=== PATIENT | female | born 1975 | race African-American/Black ===

== ENCOUNTER 2023-12-30 11:56 | Observation (INO) ==
[2023-12-30] MEDS: PERCOCET TAB 5/325 MG PO PRN (14:00)
[2023-12-30] MEDS: NS 1,000 ML IV 1,000 ML IV SCH (14:00)
[2023-12-30 14:08] LABS: BASOPHILS # (AUTO) 0.1 X10^3/uL (0.0-0.1); BASOPHILS % (AUTO) 1.2 % (0.2-1.0); EOSINOPHILS # (AUTO) 0.1 x10^3/uL (0.0-0.2); EOSINOPHILS % (AUTO) 1.4 % (0.9-2.9); HEMOGLOBIN 9.4 g/dL (12.0-16.0); LYMPHOCYTES # (AUTO) 1.6 X10^3/uL (1.3-2.9); LYMPHOCYTES % (AUTO) 22.5 % (21.0-51.0); MEAN CORPUSCULAR HEMOGLOBIN 29.3 pg (27.0-34.0); MEAN CORPUSCULAR HGB CONC 33.5 g/dL (33.0-35.0); MEAN CORPUSCULAR VOLUME 87.2 fL (80.0-100.0); MEAN PLATELET VOLUME 6.9 fL (7.4-11.0); MONOCYTES # (AUTO) 0.5 x10^3/uL (0.3-0.8); MONOCYTES % (AUTO) 7.4 % (0.0-13.0); NEUTROPHILS % (AUTO) 67.5 % (42.0-75.0); PLATELET COUNT 230 X10^3/uL (150.0-450.0); RED BLOOD COUNT 3.21 X10^6/uL (3.5-5.4); RED CELL DISTRIBUTION WIDTH 17.2 % (11.6-16.5); WHITE BLOOD COUNT 7.3 X10^3/uL (3.6-10.0)
[2023-12-30 14:21] LABS: ALANINE AMINOTRANSFERASE 7 Units/L (12-78); ALBUMIN 3.2 g/dL (3.4-5.0); ALKALINE PHOSPHATASE 99 Units/L (46-116); ASPARTATE AMINO TRANSFERASE 7 Units/L (15-37); BLOOD UREA NITROGEN 60 mg/dL (7-18); CALCIUM 9.1 mg/dL (8.5-10.1); CARBON DIOXIDE 27.7 mmol/L (21-32); CHLORIDE 101 mmol/L (98-107); COR CA(FOR HYPOALB) 9.7 mg/dL (8.5-10.1); CREATININE 9.53 mg/dL (0.55-1.02); GLUCOSE 83 mg/dL (65-99); POTASSIUM 5.2 mmol/L (3.5-5.1); SODIUM 140 mmol/L (136-145); TOTAL PROTEIN 7.5 g/dL (6.4-8.2); eGFR NON BLACK RACES 5 (>60)
[2023-12-30] MEDS: NS 250 ML IV 250 ML IV ONE (16:48)
[2023-12-30] MEDS: ZOSYN VIAL 2.25 GRAMS 2.25 G in NS 100 ML IV 100 ML IV SCH (16:49)
[2023-12-31] MEDS: HIBICLENS WASH EXT ONE (05:00)
[2023-12-31 05:48] LABS: BASOPHILS # (AUTO) 0.1 X10^3/uL (0.0-0.1); BASOPHILS % (AUTO) 0.7 % (0.2-1.0); EOSINOPHILS # (AUTO) 0.1 x10^3/uL (0.0-0.2); EOSINOPHILS % (AUTO) 1.1 % (0.9-2.9); HEMOGLOBIN 9.5 g/dL (12.0-16.0); LYMPHOCYTES # (AUTO) 1.3 X10^3/uL (1.3-2.9); LYMPHOCYTES % (AUTO) 15.4 % (21.0-51.0); MEAN CORPUSCULAR HEMOGLOBIN 29.6 pg (27.0-34.0); MEAN CORPUSCULAR HGB CONC 33.8 g/dL (33.0-35.0); MEAN CORPUSCULAR VOLUME 87.4 fL (80.0-100.0); MEAN PLATELET VOLUME 7.2 fL (7.4-11.0); MONOCYTES # (AUTO) 0.5 x10^3/uL (0.3-0.8); MONOCYTES % (AUTO) 6.4 % (0.0-13.0); NEUTROPHILS # (AUTO) 6.5 x10^3/uL (2.2-4.8); NEUTROPHILS % (AUTO) 76.4 % (42.0-75.0); PLATELET COUNT 240 X10^3/uL (150.0-450.0); RED CELL DISTRIBUTION WIDTH 17.4 % (11.6-16.5); WHITE BLOOD COUNT 8.5 X10^3/uL (3.6-10.0)
--- NOTE | 2023-12-31 16:01 | NOTE.SOAP ---
Soap Note Note for Day of Date of Exam: 12/30/23 Subjective Data Subjective Data: See office note . Admitted for iV antibiotics and possible drainage of infected left arm over upper arm AV graft. Objective Data Temperature: 99 F Pulse Rate: 92 Respiratory Rate: 18 Blood Pressure: 139/73 O2 Sat by Pulse Oximetry: 98 Objective Data: Red swollen ledt upper arm with posible purulence Assessment Assessment: infected AV dialysis graft left upper arm Plan Plan: IV antibiotics and re-evaluate. May need incision and drainage around dialysis graft
[2024-01-01 05:02] LABS: BASOPHILS # (AUTO) 0.1 X10^3/uL (0.0-0.1); EOSINOPHILS # (AUTO) 0.1 x10^3/uL (0.0-0.2); EOSINOPHILS % (AUTO) 1.9 % (0.9-2.9); HEMATOCRIT 27.9 % (36.0-47.0); HEMOGLOBIN 9.3 g/dL (12.0-16.0); LYMPHOCYTES # (AUTO) 1.6 X10^3/uL (1.3-2.9); LYMPHOCYTES % (AUTO) 23.2 % (21.0-51.0); MEAN CORPUSCULAR HGB CONC 33.2 g/dL (33.0-35.0); MEAN CORPUSCULAR VOLUME 87.3 fL (80.0-100.0); MEAN PLATELET VOLUME 7.1 fL (7.4-11.0); MONOCYTES # (AUTO) 0.5 x10^3/uL (0.3-0.8); MONOCYTES % (AUTO) 7.5 % (0.0-13.0); NEUTROPHILS # (AUTO) 4.7 x10^3/uL (2.2-4.8); NEUTROPHILS % (AUTO) 66.4 % (42.0-75.0); PLATELET COUNT 247 X10^3/uL (150.0-450.0); RED CELL DISTRIBUTION WIDTH 17.1 % (11.6-16.5); WHITE BLOOD COUNT 7.1 X10^3/uL (3.6-10.0)
[2024-01-01 05:07] LABS: BLOOD UREA NITROGEN 74 mg/dL (7-18); CALCIUM 8.7 mg/dL (8.5-10.1); CHLORIDE 100 mmol/L (98-107); CREATININE 11.95 mg/dL (0.55-1.02); GLUCOSE 85 mg/dL (65-99); POTASSIUM 4.8 mmol/L (3.5-5.1); SODIUM 140 mmol/L (136-145); eGFR NON BLACK RACES 4 (>60)
[2024-01-01 05:31] VITALS: O2SAT 100
[2024-01-01 07:00] VITALS: BMI 35.0
[2024-01-01] MEDS: NS 500 ML IV 500 ML IV ONE (14:58)
[2024-01-01] MEDS: MARCAINE 0.5% ONE (15:00)
[2024-01-01] MEDS: NS 100 ML IV 100 ML ONE (15:01)
[2024-01-01] MEDS: ANCEF VIAL 1 GRAM ONE (15:01)
[2024-01-01] MEDS: BETADINE SOLN ONE (15:10)
--- NOTE | 2024-01-01 15:11 | DR.H&P ---
H&P History & Physical for Day of: H&P Date: 12/31/23 Chief Complaint Chief Complaint: Swollen left upper arm with redness History of Present Illness History of Present Illness: 48 year old female with end-stage renal disease currently dialyzed via a left internal jugular dual lumen catheter. The patient has had revision of this graft in left upper arm and it has been used twice now with significant swelling around it and questionable whether or not the graft is working or not. There is redness and swelling over the left lateral arm over the graft itself. Past Medical History Past Medical History: GERD, Hypertension and Renal Disease Past Surgical History Surgical History: Cholecystectomy and Hysterectomy Family History Family Medical History: Diabetes Mellitus, ME and Hypertension Social History Does patient currently use any type of tobacco product: No Type of Tobacco Use: Cigarettes How many years tobacco product used: 28 Alcohol Use: None Drug Use: None Medications Home Medications: Home Medications Medication Instructions Recorded Confirmed Type famotidine 40 mg tablet 40 mg PO QDAY 12/30/23 12/30/23 History Allergies Allergies Allergy/AdvReac Type Severity Reaction Status Date / Time No Known Allergies Allergy Verified 12/30/23 13:12 Labs 01/01/24 04:36 01/01/24 04:36 Labs: Laboratory WBC 8.5 X10^3/uL (3.6-10.0) 12/31/23 04:41 RBC 3.20 X10^6/uL (3.5-5.4) L 12/31/23 04:41 Hgb 9.5 g/dL (12.0-16.0) L 12/31/23 04:41 Hct 28.0 % (36.0-47.0) L 12/31/23 04:41 MCV 87.4 fL (80.0-100.0) 12/31/23 04:41 MCH 29.6 pg (27.0-34.0) 12/31/23 04:41 MCHC 33.8 g/dL (33.0-35.0) 12/31/23 04:41 RDW 17.4 % (11.6-16.5) H 12/31/23 04:41 Plt Count 240 X10^3/uL (150.0-450.0) 12/31/23 04:41 MPV 7.2 fL (7.4-11.0) L 12/31/23 04:41 Neut % (Auto) 76.4 % (42.0-75.0) H 12/31/23 04:41 Lymph % (Auto) 15.4 % (21.0-51.0) L 12/31/23 04:41 [place] % (Auto) 6.4 % (0.0-13.0) 12/31/23 04:41 Eos % (Auto) 1.1 % (0.9-2.9) 12/31/23 04:41 Baso % (Auto) 0.7 % (0.2-1.0) 12/31/23 04:41 Neut # (Auto) 6.5 x10^3/uL (2.2-4.8) H 12/31/23 04:41 Lymph # (Auto) 1.3 X10^3/uL (1.3-2.9) 12/31/23 04:41 [place] # (Auto) 0.5 x10^3/uL (0.3-0.8) 12/31/23 04:41 Eos # (Auto) 0.1 x10^3/uL (0.0-0.2) 12/31/23 04:41 Baso # (Auto) 0.1 X10^3/uL (0.0-0.1) 12/31/23 04:41 Absolute Nucleated RBC 0.1 /100WBC 12/31/23 04:41 Sodium 140 mmol/L (136-145) 12/30/23 13:56 Corrected Sodium TNP 12/30/23 13:56 Potassium 5.2 mmol/L (3.5-5.1) H 12/31/23 04:41 Chloride 101 mmol/L (98-107) 12/30/23 13:56 Carbon Dioxide 27.7 mmol/L (21-32) 12/30/23 13:56 BUN 60 mg/dL (7-18) H 12/30/23 13:56 Creatinine 9.53 mg/dL (0.55-1.02) H 12/30/23 13:56 Est GFR (MDRD) Af Amer 6 (>60) L 12/30/23 13:56 Est GFR (MDRD) Non-Af 5 (>60) L 12/30/23 13:56 Glucose 83 mg/dL (65-99) 12/30/23 13:56 POC Glucose (mg/dL) 88 mg/dL (65-99) 12/31/23 11:26 Calcium 9.1 mg/dL (8.5-10.1) 12/30/23 13:56 Corrected Calcium 9.7 mg/dL (8.5-10.1) 12/30/23 13:56 Total Bilirubin 0.20 mg/dL (0.2-1.0) 12/30/23 13:56 AST 7 Units/L (15-37) L 12/30/23 13:56 ALT 7 Units/L (12-78) L 12/30/23 13:56 Alkaline Phosphatase 99 Units/L (46-116) 12/30/23 13:56 Total Protein 7.5 g/dL (6.4-8.2) 12/30/23 13:56 Albumin 3.2 g/dL (3.4-5.0) L 12/30/23 13:56 Globulin 4.3 g/dL (2.5-4.5) 12/30/23 13:56 Albumin/Globulin Ratio 0.7 Ratio (1.1-2.1) L 12/30/23 13:56 Review of Systems Constitutional: See HPI Eyes: No Symptoms Reported ENT: No Symptoms Reported Respiratory: No Symptoms Reported Cardiovascular: No Symptoms Reported Gastrointestinal: No Symptoms Reported Genitourinary: No Symptoms Reported Musculoskeletal: No Symptoms Reported Skin: No Symptoms Reported Neurological: No Symptoms Reported Physical Exam Vital Signs: Vital Signs Temperature 99 F Temperature 98.7 F Pulse Rate 92 Pulse Rate 81 Pulse Rate 77 Pulse Rate 77 Pulse Rate 84 Pulse Rate 83 Respiratory Rate 18 Respiratory Rate 18 Respiratory Rate 18 Blood Pressure 139/73 Blood Pressure 170/88 Blood Pressure 178/89 O2 Sat by Pulse Oximetry 98 O2 Sat by Pulse Oximetry 100 O2 Sat by Pulse Oximetry 98 O2 Sat by Pulse Oximetry 95 O2 Sat by Pulse Oximetry 95 O2 Sat by Pulse Oximetry 100 Oriented: Normal, Time, Person and Place Eyes: Normal Ear: Normal Nose: Normal Throat: Normal Respiratory: Clear Throughout Cardiovascular: Normal : Normal Auscultation: Bowel Sounds: Normal Palpation: Normal Tenderness: Normal Skin: Other (redness , swelling and blistering of the left upper arm over the dialysis catheter) Musculoskeletal: Normal Psychiatric: Normal Mood Description: Anxious Affect: Normal Speech Pattern: Clear and Appropriate Assessment/Plan (1) End stage renal disease: Status: Acute Plan: last dialyzed 12/29/2023 , will monitor fluid status and elctrolytes (2) Gastro-esophageal reflux disease without esophagitis: Status: Acute Plan: po famotidine (3) Infection and inflammatory reaction due to other cardiac and vascular devices, implants and grafts, initial encounter: Status: Acute Plan: iv anntibiotois Review H&P Reviewed: Yes Patient was examined?: Yes
--- NOTE | 2024-01-01 15:46 | OR.IMMED ---
IMMEDIATE POST-OP NOTE Immediate Post-Op Note Date of surgery/procedure: 01/01/24 Pre-Op Diagnosis: abscess/ hematoma over left upper arm AV graft Post-Op Diagnosis: same Procedure: incise and drain abscess over the left upper arm AV graft Description of Procedure: dictated Surgeon/Production Troubleshooter: Aidee Findings: as above ,abscess over the graft in the left upper arm and hematoma over the medial left uuper arm near venous anastomosis Specimens Removed: cultures of abscess Estimated Blood Loss: < 25 cc Complications: none Progress Notes: to floor , restart diet , coninue IV antibiotics, Will arrange for dialysis tomorrow
[2024-01-01] MEDS ORDERED: ZOFRAN INJ 4 MG VIAL ONE (16:02)
[2024-01-01] MEDS: ZOFRAN INJ 4 MG VIAL IVP PRN (16:18)
[2024-01-01] MEDS: CATAPRES TAB 0.1 MG PO ONE (17:27)
[2024-01-02] MEDS: MILK OF MAGNESIA PO PRN (05:19)
[2024-01-02] MEDS ORDERED: ZOFRAN INJ 4 MG VIAL ONE (07:07)
[2024-01-02] MEDS: ZOFRAN INJ 4 MG VIAL IVP PRN (07:27)
[2024-01-02 07:28] VITALS: RESP 20
[2024-01-02 09:11] VITALS: BP 181/85; PULSE 76; TEMP 98
--- NOTE | 2024-01-02 10:31 | W.DIS.FURT ---
Summary of Discharge Discharge Summary of Date Date of Exam: 01/02/24 Admission Date Date of Admission: 12/30/23 Admission Diagnosis Hospital Course: This is a 48 year old female with end-stage renal disease who has had revision of a left upper arm arterio-venous dialysis graft . It has been unable to be used and she presented with significant infection of that arm. She was admitted and placed on IV antibiotics.She underwent incision and drainage of this wound on December and the loom packed . She will be discharged with the dressing intact to the left arm. She will go to go dialysis tomorrow. Her creatinine and potassium have been reasonable despite not being dialed on Satuday 12/31/2023 , as her as her volume status. Cultures are pending but she will be discharged on Clindamycin 150 milligrams TID and will plan to also give her a prescription for Percocet 5 milligram tablets ,1 every 6 hours PRN pain. She has appointment to see me on TuesdayJanuary 03 to assess the wound. Vital Signs: Vital Signs (72 hours) 12/31/23 16:01 12/30/23 13:00 12/30/23 14:00 Temperature 99 F Pulse Rate 92 H Respiratory Rate 18 20 Blood Pressure 139/73 O2 Sat by Pulse Oximetry 98 Oxygen Delivery Method Room Air Oxygen Flow Rate FIO2% 12/30/23 16:08 12/30/23 13:01 12/30/23 13:06 Temperature Pulse Rate Respiratory Rate Blood Pressure 151/81 O2 Sat by Pulse Oximetry 81 L Oxygen Delivery Method Nasal Cannula Oxygen Flow Rate 2 FIO2% 28 12/30/23 13:06 12/30/23 14:00 12/30/23 15:00 Temperature Pulse Rate 84 86 88 Respiratory Rate Blood Pressure O2 Sat by Pulse Oximetry 100 99 98 Oxygen Delivery Method Oxygen Flow Rate FIO2% 12/30/23 15:55 12/30/23 15:55 12/30/23 16:00 Temperature 98.1 F Pulse Rate 80 78 Respiratory Rate Blood Pressure 141/71 O2 Sat by Pulse Oximetry 97 99 Oxygen Delivery Method Oxygen Flow Rate FIO2% 12/30/23 16:00 12/30/23 15:00 12/30/23 17:00 Temperature 99.0 F Pulse Rate 81 Respiratory Rate 20 Blood Pressure 135/68 O2 Sat by Pulse Oximetry 100 Oxygen Delivery Method Oxygen Flow Rate FIO2% 12/30/23 20:11 12/30/23 19:00 12/30/23 18:00 Temperature Pulse Rate 80 Respiratory Rate 20 Blood Pressure O2 Sat by Pulse Oximetry 97 Oxygen Delivery Method Room Air Oxygen Flow Rate FIO2% 12/30/23 19:00 12/30/23 20:00 12/30/23 20:07 Temperature Pulse Rate 87 95 H 92 H Respiratory Rate Blood Pressure O2 Sat by Pulse Oximetry 99 100 98 Oxygen Delivery Method Oxygen Flow Rate FIO2% 12/30/23 20:07 12/30/23 21:11 12/30/23 20:00 Temperature 99 F Pulse Rate Respiratory Rate 20 Blood Pressure 139/78 O2 Sat by Pulse Oximetry Oxygen Delivery Method Nasal Cannula Oxygen Flow Rate 2 FIO2% 12/30/23 21:00 12/30/23 22:00 12/30/23 23:00 Temperature Pulse Rate 90 86 87 Respiratory Rate Blood Pressure O2 Sat by Pulse Oximetry 99 100 100 Oxygen Delivery Method Oxygen Flow Rate FIO2% 12/31/23 00:00 12/31/23 00:11 12/31/23 00:11 Temperature 98.8 F Pulse Rate 81 81 Respiratory Rate Blood Pressure 154/74 O2 Sat by Pulse Oximetry 100 99 Oxygen Delivery Method Oxygen Flow Rate FIO2% 12/31/23 05:30 12/31/23 01:00 12/31/23 02:00 Temperature Pulse Rate 103 H 83 Respiratory Rate 20 Blood Pressure O2 Sat by Pulse Oximetry 99 100 Oxygen Delivery Method Oxygen Flow Rate FIO2% 12/31/23 03:01 12/31/23 04:00 12/31/23 04:00 Temperature 98.9 F Pulse Rate 75 93 H Respiratory Rate Blood Pressure 161/76 O2 Sat by Pulse Oximetry 100 95 Oxygen Delivery Method Oxygen Flow Rate FIO2% 12/31/23 05:32 12/31/23 06:30 12/31/23 07:00 Temperature Pulse Rate 87 Respiratory Rate 20 Blood Pressure O2 Sat by Pulse Oximetry 93 L Oxygen Delivery Method Room Air Oxygen Flow Rate FIO2% 12/31/23 06:00 12/31/23 07:00 12/31/23 08:00 Temperature 98.1 F Pulse Rate 81 77 84 Respiratory Rate Blood Pressure O2 Sat by Pulse Oximetry 100 100 98 Oxygen Delivery Method Oxygen Flow Rate FIO2% 12/31/23 08:00 12/31/23 08:00 12/31/23 08:00 Temperature Pulse Rate Respiratory Rate Blood Pressure 150/75 150/75 150/75 O2 Sat by Pulse Oximetry Oxygen Delivery Method Oxygen Flow Rate FIO2% 12/31/23 09:00 12/31/23 10:01 12/31/23 11:00 Temperature Pulse Rate 83 84 77 Respiratory Rate Blood Pressure O2 Sat by Pulse Oximetry 100 95 95 Oxygen Delivery Method Oxygen Flow Rate FIO2% 12/31/23 12:43 12/31/23 12:43 12/31/23 12:44 Temperature 98.7 F Pulse Rate 77 81 Respiratory Rate Blood Pressure 178/89 O2 Sat by Pulse Oximetry 98 100 Oxygen Delivery Method Oxygen Flow Rate FIO2% 12/31/23 12:44 12/31/23 12:49 12/31/23 13:49 Temperature Pulse Rate Respiratory Rate 18 18 Blood Pressure 170/88 O2 Sat by Pulse Oximetry Oxygen Delivery Method Oxygen Flow Rate FIO2% 12/31/23 12:44 12/31/23 12:44 12/31/23 16:14 Temperature 98.1 F Pulse Rate 81 83 Respiratory Rate Blood Pressure 170/88 O2 Sat by Pulse Oximetry 100 99 Oxygen Delivery Method Oxygen Flow Rate FIO2% 12/31/23 16:15 12/31/23 16:15 12/31/23 16:15 Temperature Pulse Rate Respiratory Rate Blood Pressure 177/79 177/79 177/79 O2 Sat by Pulse Oximetry Oxygen Delivery Method Oxygen Flow Rate FIO2% 12/31/23 16:15 12/31/23 19:00 12/31/23 20:33 Temperature Pulse Rate 81 80 Respiratory Rate Blood Pressure O2 Sat by Pulse Oximetry 98 99 Oxygen Delivery Method Room Air Oxygen Flow Rate FIO2% 12/31/23 20:34 12/31/23 20:34 12/31/23 20:59 Temperature 99.3 F Pulse Rate 80 Respiratory Rate Blood Pressure 156/75 O2 Sat by Pulse Oximetry 97 Oxygen Delivery Method Nasal Cannula Oxygen Flow Rate 2 FIO2% 28 12/31/23 21:00 12/31/23 22:00 12/31/23 23:00 Temperature Pulse Rate 79 69 68 Respiratory Rate Blood Pressure O2 Sat by Pulse Oximetry 98 95 98 Oxygen Delivery Method Oxygen Flow Rate FIO2% 01/01/24 00:00 01/01/24 00:22 01/01/24 00:22 Temperature 98 F Pulse Rate 75 77 Respiratory Rate Blood Pressure 151/78 O2 Sat by Pulse Oximetry 96 94 L Oxygen Delivery Method Oxygen Flow Rate FIO2% 01/01/24 01:16 01/01/24 02:16 01/01/24 01:00 Temperature Pulse Rate 77 Respiratory Rate 18 20 Blood Pressure O2 Sat by Pulse Oximetry 98 Oxygen Delivery Method Oxygen Flow Rate FIO2% 01/01/24 02:00 01/01/24 03:00 01/01/24 04:00 Temperature 97.8 F Pulse Rate 75 80 80 Respiratory Rate Blood Pressure O2 Sat by Pulse Oximetry 100 100 100 Oxygen Delivery Method Oxygen Flow Rate FIO2% 01/01/24 05:00 01/01/24 05:20 01/01/24 05:20 Temperature Pulse Rate 78 76 Respiratory Rate Blood Pressure 160/75 O2 Sat by Pulse Oximetry 100 100 Oxygen Delivery Method Oxygen Flow Rate FIO2% 01/01/24 07:00 01/01/24 06:00 01/01/24 07:00 Temperature Pulse Rate 78 78 Respiratory Rate Blood Pressure O2 Sat by Pulse Oximetry 100 100 Oxygen Delivery Method Room Air Oxygen Flow Rate FIO2% 01/01/24 08:00 01/01/24 08:39 01/01/24 08:39 Temperature 98.0 F Pulse Rate 97 H 74 Respiratory Rate Blood Pressure 143/74 O2 Sat by Pulse Oximetry 100 100 Oxygen Delivery Method Oxygen Flow Rate FIO2% 01/01/24 12:58 01/01/24 08:45 01/01/24 12:52 Temperature Pulse Rate 81 Respiratory Rate 18 Blood Pressure 182/95 O2 Sat by Pulse Oximetry 100 Oxygen Delivery Method Oxygen Flow Rate FIO2% 01/01/24 12:54 01/01/24 12:55 01/01/24 12:55 Temperature Pulse Rate 72 77 Respiratory Rate Blood Pressure 173/99 O2 Sat by Pulse Oximetry 100 100 Oxygen Delivery Method Oxygen Flow Rate FIO2% 01/01/24 13:00 01/01/24 13:58 01/01/24 14:00 Temperature Pulse Rate 74 75 Respiratory Rate 18 Blood Pressure O2 Sat by Pulse Oximetry 100 100 Oxygen Delivery Method Oxygen Flow Rate FIO2% 01/01/24 14:48 01/01/24 15:50 01/01/24 15:51 Temperature Pulse Rate 74 79 Respiratory Rate Blood Pressure 169/81 O2 Sat by Pulse Oximetry 100 100 Oxygen Delivery Method Oxygen Flow Rate FIO2% 01/01/24 15:53 01/01/24 15:53 01/01/24 16:00 Temperature Pulse Rate 78 100 H Respiratory Rate Blood Pressure 169/87 O2 Sat by Pulse Oximetry 100 97 Oxygen Delivery Method Oxygen Flow Rate FIO2% 01/01/24 16:20 01/01/24 16:24 01/01/24 16:26 Temperature Pulse Rate 97 H 91 H 75 Respiratory Rate Blood Pressure O2 Sat by Pulse Oximetry 100 100 100 Oxygen Delivery Method Oxygen Flow Rate FIO2% 01/01/24 16:27 01/01/24 16:27 01/01/24 16:30 Temperature Pulse Rate 77 Respiratory Rate Blood Pressure 196/83 187/82 O2 Sat by Pulse Oximetry 100 Oxygen Delivery Method Oxygen Flow Rate FIO2% 01/01/24 16:30 01/01/24 16:45 01/01/24 16:45 Temperature Pulse Rate 76 71 Respiratory Rate Blood Pressure 199/86 O2 Sat by Pulse Oximetry 100 100 Oxygen Delivery Method Oxygen Flow Rate FIO2% 01/01/24 17:00 01/01/24 17:00 01/01/24 17:16 Temperature Pulse Rate 82 Respiratory Rate Blood Pressure 175/65 191/86 O2 Sat by Pulse Oximetry 100 Oxygen Delivery Method Oxygen Flow Rate FIO2% 01/01/24 17:16 01/01/24 17:16 01/01/24 17:31 Temperature Pulse Rate 77 78 Respiratory Rate Blood Pressure 191/86 O2 Sat by Pulse Oximetry 100 100 Oxygen Delivery Method Oxygen Flow Rate FIO2% 01/01/24 17:31 01/01/24 17:45 01/01/24 17:45 Temperature Pulse Rate 77 Respiratory Rate Blood Pressure 190/95 171/86 O2 Sat by Pulse Oximetry 100 Oxygen Delivery Method Oxygen Flow Rate FIO2% 01/01/24 18:00 01/01/24 18:00 01/01/24 18:16 Temperature Pulse Rate 74 80 Respiratory Rate Blood Pressure 176/86 O2 Sat by Pulse Oximetry 100 100 Oxygen Delivery Method Oxygen Flow Rate FIO2% 01/01/24 18:17 01/01/24 18:17 01/01/24 19:00 Temperature Pulse Rate 80 Respiratory Rate Blood Pressure 177/86 O2 Sat by Pulse Oximetry 100 Oxygen Delivery Method Room Air Oxygen Flow Rate FIO2% 01/01/24 19:42 01/01/24 21:48 01/01/24 18:30 Temperature Pulse Rate Respiratory Rate 18 Blood Pressure 159/85 O2 Sat by Pulse Oximetry Oxygen Delivery Method Room Air Oxygen Flow Rate FIO2% 01/01/24 18:30 01/01/24 18:45 01/01/24 18:45 Temperature Pulse Rate 83 73 Respiratory Rate Blood Pressure 179/84 O2 Sat by Pulse Oximetry 100 100 Oxygen Delivery Method Oxygen Flow Rate FIO2% 01/01/24 19:00 01/01/24 19:00 01/01/24 19:15 Temperature Pulse Rate 77 104 H Respiratory Rate Blood Pressure 165/76 O2 Sat by Pulse Oximetry 100 99 Oxygen Delivery Method Oxygen Flow Rate FIO2% 01/01/24 19:15 01/01/24 19:19 01/01/24 19:19 Temperature Pulse Rate 93 H Respiratory Rate Blood Pressure 203/100 211/99 O2 Sat by Pulse Oximetry 97 Oxygen Delivery Method Oxygen Flow Rate FIO2% 01/01/24 19:24 01/01/24 19:24 01/01/24 19:30 Temperature Pulse Rate 79 75 Respiratory Rate Blood Pressure 189/86 O2 Sat by Pulse Oximetry 100 100 Oxygen Delivery Method Oxygen Flow Rate FIO2% 01/01/24 19:30 01/01/24 19:41 01/01/24 19:41 Temperature Pulse Rate 76 Respiratory Rate Blood Pressure 181/86 174/82 O2 Sat by Pulse Oximetry 100 Oxygen Delivery Method Oxygen Flow Rate FIO2% 01/01/24 19:45 01/01/24 19:45 01/01/24 20:00 Temperature Pulse Rate 82 79 Respiratory Rate Blood Pressure 172/82 O2 Sat by Pulse Oximetry 100 100 Oxygen Delivery Method Oxygen Flow Rate FIO2% 01/01/24 20:01 01/01/24 20:01 01/01/24 20:15 Temperature 98.7 F Pulse Rate 78 88 Respiratory Rate Blood Pressure 166/73 O2 Sat by Pulse Oximetry 100 100 Oxygen Delivery Method Oxygen Flow Rate FIO2% 01/01/24 20:15 01/01/24 20:30 01/01/24 20:30 Temperature Pulse Rate 80 Respiratory Rate Blood Pressure 160/77 161/76 O2 Sat by Pulse Oximetry 100 Oxygen Delivery Method Oxygen Flow Rate FIO2% 01/01/24 20:45 01/01/24 20:45 01/01/24 21:00 Temperature Pulse Rate 77 Respiratory Rate Blood Pressure 149/71 165/81 O2 Sat by Pulse Oximetry 100 Oxygen Delivery Method Oxygen Flow Rate FIO2% 01/01/24 21:00 01/01/24 21:00 01/01/24 21:15 Temperature Pulse Rate 74 81 Respiratory Rate Blood Pressure 165/81 O2 Sat by Pulse Oximetry 100 100 Oxygen Delivery Method Oxygen Flow Rate FIO2% 01/01/24 21:15 01/01/24 22:47 01/01/24 21:23 Temperature Pulse Rate 86 Respiratory Rate 18 Blood Pressure 172/89 O2 Sat by Pulse Oximetry 100 Oxygen Delivery Method Oxygen Flow Rate FIO2% 01/01/24 21:32 01/01/24 22:00 01/01/24 23:00 Temperature Pulse Rate 77 74 Respiratory Rate Blood Pressure 162/90 O2 Sat by Pulse Oximetry 93 L 100 Oxygen Delivery Method Oxygen Flow Rate FIO2% 01/02/24 00:42 01/02/24 00:42 01/02/24 00:45 Temperature 98.1 F Pulse Rate 73 Respiratory Rate Blood Pressure 156/74 163/78 O2 Sat by Pulse Oximetry 100 Oxygen Delivery Method Oxygen Flow Rate FIO2% 01/02/24 00:45 01/02/24 01:00 01/02/24 01:00 Temperature Pulse Rate 75 74 Respiratory Rate Blood Pressure 149/68 O2 Sat by Pulse Oximetry 100 100 Oxygen Delivery Method Oxygen Flow Rate FIO2% 01/02/24 01:15 01/02/24 01:15 01/02/24 01:30 Temperature Pulse Rate 74 71 Respiratory Rate Blood Pressure 160/75 O2 Sat by Pulse Oximetry 100 100 Oxygen Delivery Method Oxygen Flow Rate FIO2% 01/02/24 01:30 01/02/24 01:51 01/02/24 01:51 Temperature Pulse Rate 90 Respiratory Rate Blood Pressure 160/73 187/81 O2 Sat by Pulse Oximetry 100 Oxygen Delivery Method Oxygen Flow Rate FIO2% 01/02/24 01:52 01/02/24 01:52 01/02/24 02:00 Temperature Pulse Rate 86 85 Respiratory Rate Blood Pressure 183/84 O2 Sat by Pulse Oximetry 99 100 Oxygen Delivery Method Oxygen Flow Rate FIO2% 01/02/24 02:01 01/02/24 02:01 01/02/24 03:00 Temperature Pulse Rate 79 75 Respiratory Rate Blood Pressure 168/89 O2 Sat by Pulse Oximetry 100 100 Oxygen Delivery Method Oxygen Flow Rate FIO2% 01/02/24 04:00 01/02/24 04:04 01/02/24 04:04 Temperature 98 F Pulse Rate 73 67 Respiratory Rate Blood Pressure 144/67 O2 Sat by Pulse Oximetry 98 100 Oxygen Delivery Method Oxygen Flow Rate FIO2% 01/02/24 05:00 01/02/24 07:28 01/02/24 08:20 Temperature Pulse Rate 73 Respiratory Rate 20 Blood Pressure O2 Sat by Pulse Oximetry 100 Oxygen Delivery Method Room Air Oxygen Flow Rate FIO2% 01/02/24 08:00 01/02/24 07:00 Temperature 98.0 F Pulse Rate 76 Respiratory Rate 20 Blood Pressure 181/85 O2 Sat by Pulse Oximetry 100 Oxygen Delivery Method Room Air Room Air Oxygen Flow Rate FIO2% Labs: Laboratory Last Values WBC 7.1 X10^3/uL (3.6-10.0) 01/01/24 04:36 RBC 3.20 X10^6/uL (3.5-5.4) L 01/01/24 04:36 Hgb 9.3 g/dL (12.0-16.0) L 01/01/24 04:36 Hct 27.9 % (36.0-47.0) L 01/01/24 04:36 MCV 87.3 fL (80.0-100.0) 01/01/24 04:36 MCH 29.0 pg (27.0-34.0) 01/01/24 04:36 MCHC 33.2 g/dL (33.0-35.0) 01/01/24 04:36 RDW 17.1 % (11.6-16.5) H 01/01/24 04:36 Plt Count 247 X10^3/uL (150.0-450.0) 01/01/24 04:36 MPV 7.1 fL (7.4-11.0) L 01/01/24 04:36 Neut % (Auto) 66.4 % (42.0-75.0) 01/01/24 04:36 Lymph % (Auto) 23.2 % (21.0-51.0) 01/01/24 04:36 Grainger % (Auto) 7.5 % (0.0-13.0) 01/01/24 04:36 Eos % (Auto) 1.9 % (0.9-2.9) 01/01/24 04:36 Baso % (Auto) 1.0 % (0.2-1.0) 01/01/24 04:36 Neut # (Auto) 4.7 x10^3/uL (2.2-4.8) 01/01/24 04:36 Lymph # (Auto) 1.6 X10^3/uL (1.3-2.9) 01/01/24 04:36 Grainger # (Auto) 0.5 x10^3/uL (0.3-0.8) 01/01/24 04:36 Eos # (Auto) 0.1 x10^3/uL (0.0-0.2) 01/01/24 04:36 Baso # (Auto) 0.1 X10^3/uL (0.0-0.1) 01/01/24 04:36 Absolute Nucleated RBC 0.0 /100WBC 01/01/24 04:36 Sodium 140 mmol/L (136-145) 01/01/24 04:36 Corrected Sodium TNP 01/01/24 04:36 Potassium 4.8 mmol/L (3.5-5.1) 01/01/24 04:36 Chloride 100 mmol/L (98-107) 01/01/24 04:36 Carbon Dioxide 25.0 mmol/L (21-32) 01/01/24 04:36 BUN 74 mg/dL (7-18) H 01/01/24 04:36 Creatinine 11.95 mg/dL (0.55-1.02) H 01/01/24 04:36 Est GFR (MDRD) Af Amer 4 (>60) L 01/01/24 04:36 Est GFR (MDRD) Non-Af 4 (>60) L 01/01/24 04:36 Glucose 85 mg/dL (65-99) 01/01/24 04:36 POC Glucose (mg/dL) 78 mg/dL (65-99) 01/02/24 05:20 Calcium 8.7 mg/dL (8.5-10.1) 01/01/24 04:36 Corrected Calcium 9.7 mg/dL (8.5-10.1) 12/30/23 13:56 Total Bilirubin 0.20 mg/dL (0.2-1.0) 12/30/23 13:56 AST 7 Units/L (15-37) L 12/30/23 13:56 ALT 7 Units/L (12-78) L 12/30/23 13:56 Alkaline Phosphatase 99 Units/L (46-116) 12/30/23 13:56 Total Protein 7.5 g/dL (6.4-8.2) 12/30/23 13:56 Albumin 3.2 g/dL (3.4-5.0) L 12/30/23 13:56 Globulin 4.3 g/dL (2.5-4.5) 12/30/23 13:56 Albumin/Globulin Ratio 0.7 Ratio (1.1-2.1) L 12/30/23 13:56 Reason For Visit: INFECTED DIALYSIS SHUNT LUE Discharge Date Discharge Date: 01/02/24 Discharge Diagnosis All Active Problems (Updated 12/31/23 @ 16:10 by Vernon Hoskins) Infection and inflammatory reaction due to other cardiac and vascular devices, implants and grafts, initial encounter (Acute) Gastro-esophageal reflux disease without esophagitis (Acute) End stage renal disease (Acute) Plan of Treatment: Continue with present treatment and follow up plan. Pt is to keep follow up appointment as instructed and take medications as ordered. Discharge Medications Discharge Medications: No Known Allergies Allergy (Verified 12/30/23 13:12) CONTINUE taking the following medications famotidine 40 mg tablet 40 mg PO QDAY 12/30/23 [History] Clindamycin 150 mg po TID Percocet 5 mg , 1 po q 6 hr PRN pain Discharge Disposition Assessment: see hospital course Discharge Plan Discharge Plan Hospital Course: This is a 48 year old female with end-stage renal disease who has had revision of a left upper arm arterio-venous dialysis graft . It has been unable to be used and she presented with significant infection of that arm. She was admitted and placed on IV antibiotics.She underwent incision and drainage of this wound on December the and the loom packed . She will be discharged with the dressing intact to the left arm. She will go to go dialysis tomorrow. Her creatinine and potassium have been reasonable despite not being dialed on Satuday 12/31/2023 , as her as her volume status. Cultures are pending but she will be discharged on Clindamycin 150 milligrams TID and will plan to also give her a prescription for Percocet 5 milligram tablets ,1 every 6 hours PRN pain. She has appointment to see me on TuesdayJanuary 03 to assess the wound. Patient Disposition: 01 HOME, SELF-CARE Condition: Stable Health Concerns: Post Hospitalization: new medications and changes needed to prevent readmission or further decline. Pt educated and given instructions on all concerns. Care Plan Goals: see hospital course Plan of Treatment: Continue with present treatment and follow up plan. Pt is to keep follow up appointment as instructed and take medications as ordered. Assessment: see hospital course Prescription drug monitoring program results: PDMP reviewed and no concerns identified Prescriptions: New clindamycin HCl 150 mg capsule 150 mg PO TID Qty: 30 0RF oxycodone-acetaminophen [Percocet] 5-325 mg tablet 1 tab PO Q6H MDD 4 PRNQty: 30 0RF Continued famotidine 40 mg tablet 40 mg PO QDAY Orders to Discharge Patient Discharge Orders: Discharge (Routine); Ordered 01/02/24 Ordered By: Vernon Hoskins Follow ups/Referrals Follow ups/Referrals: Vernon Hoskins [Primary Care Provider] - 01/04/24 Instructions Instructions: Incision and Drainage, Care After, Incision and Drainage Stand Alone Forms: Post Hospital Follow Up Care
--- NOTE | 2024-01-10 19:58 | DR.OPNOTE ---
OP NOTE Pre-Op Diagnosis: Abscess/ hematoma left upper arm over AV dialysis graft, Post-Op Diagnosis: same Procedure Date Date Of Procedure: 01/01/24 Procedure: PROCEDURE : Incision and drainage of abscess /hematoma over left upper arm arterio-venous dialysis graft NARRATIVE: The patient was taken to the operative suite and placed in the Supine position. Left arm extended iand the patient given intravenous sedation supervised by myself. Timeout for the procedure obtained. Skin overlying the presumed absess and hematoma was infiltrated with 0.5% Marcaine and a linear incision made along the axis of the graft and gross purulence evacuated. Culture were s obtained. This wound irrigated. The incision extended cephalad and a large hematoma extending down towards the venous anastomosis was evacuated with blunt dissection. This irrigated. Wound was packed with saiine soaked gauze and covered with 4X 4S, Kerlix and an ella wrap . Patient tolerated this well . Type of Anesthesia: Local (0.5 % marcaine ) Anesthesia Comment: plus MAC Findings: as above Specimen/Pathology: cultures of abscess left arm Type of Fluids Used:: Normal Saline EBL: minimal Cultures: yes obtained Complications:: none Needle/Sponge Count:: correct Disposition/Condition: Pt. tolerated procedure without difficulty. Extubated in the OR and taken to PACU in stable condition.
== END 2024-01-02 15:40 | disposition home or self-care (01) ==
LOC: ICU
PROVIDERS: ADMIT Surgery; ATTEND Surgery
DX: T82.7XXA Infection and inflammatory reaction due to other cardiac and vascular devices, implants and grafts, initial encounter; Z99.2 Dependence on renal dialysis; Z66 Do not resuscitate; N18.6 End stage renal disease; I12.0 Hypertensive chronic kidney disease with stage 5 chronic kidney disease or end stage renal disease; K21.9 Gastro-esophageal reflux disease without esophagitis; E87.5 Hyperkalemia; Z59.86 Financial insecurity